=== PATIENT | male | born 1960 | race African-American/Black ===

== ENCOUNTER 2022-06-15 19:17 | Inpatient (IN) | payer MEDICAID, OTHER ==
[~2022-06-15] VITALS: Ht 182.9 cm; Wt 97.3 kg
[2022-06-15] MEDS ORDERED: SODIUM CHLORIDE 0.9% 500 ML IV ONE (20:30)
[2022-06-15] MEDS ORDERED: SODIUM CHLORIDE 0.9% 1,000 ML IV ONE (20:30)
[2022-06-15] MEDS ORDERED: ONDANSETRON HCL 4 MG/2 ML VIAL IV ONE (20:30)
[2022-06-15 21:12] LABS: Basophils # (auto) 0 10 ^3/uL (0-0.2); Basophils % (auto) 0.5 % (0.0-2.0); Eosinophils # (auto) 0 10 ^3/uL (0-0.8); Eosinophils % (auto) 0.4 % (0.0-7.0); Hematocrit 41.5 % (41.0-53.0); Hemoglobin 13.8 g/dL (13.5-17.5); Lymphocytes # (auto) 0.4 10 ^3/uL (0.4-5.4); Lymphocytes % (auto) 4.4 % (10.0-50.0); Mean Corpuscular Hemoglobin 30.2 pg (28.0-32.0); Mean Corpuscular Hgb Conc. 33.3 g/dL (32.0-36.0); Mean Corpuscular Volume 90.7 fL (80.0-100.0); Monocytes # (auto) 0.6 10 ^3/uL (0-1.3); Monocytes % (auto) 5.9 % (0.0-12.0); Neutrophils # (auto) 8.6 10 ^3/uL (1.6-8.6); Neutrophils % (auto) 88.8 % (37.0-80.0); Nucleated Red Blood Cells % 0.1 %; Red Blood Cells 4.58 10^6/uL (4.5-5.90); Red Cell Distribution Width 15.3 % (11.8-14.3); White Blood Cell 9.7 10^3/uL (4.4-10.8)
[2022-06-15 21:33] LABS: Albumin 3.8 g/dL (3.4-5.0); BUN/Creatinine Ratio 8.8; Calcium 8.5 mg/dL (8.5-10.1); Potassium 4.1 mmol/L (3.5-5.1)
[2022-06-15 21:36] LABS: Bilirubin, Total 1.3 mg/dL (0.2-1.0); Total Protein 7.2 g/dL (6.4-8.2)
[2022-06-15 22:33] LABS: INR 1.04 (0.9-1.15); Partial Thromboplastin Time 27.4 sec (24.6-33.4)
[2022-06-15] MEDS ORDERED: ENOXAPARIN SOD 80 MG/0.8ML SYRINGE SC ONE (23:00)
[2022-06-15] MEDS ORDERED: cefTRIAXone 1GM/50ML D5W 50 ML IV ONE (23:45)
[2022-06-15] MEDS ORDERED: ONDANSETRON HCL 4 MG/2 ML VIAL IV PRN (23:45)
[2022-06-15] MEDS ORDERED: DOCUSATE SOD 100 MG CAP PO PRN (23:45)
[2022-06-15] MEDS ORDERED: ACETAMINOPHEN 325 MG TAB PO PRN (23:45)
[2022-06-15] MEDS ORDERED: HYDROcodone-ACET 5/325MG TAB PO PRN (23:45)
[2022-06-16 00:30] VITALS: BP 103/66
[2022-06-16] MEDS ORDERED: NITROGLYCERIN 0.4 MG SL TAB SL PRN (01:30)
[2022-06-16] MEDS ORDERED: MORPHINE SULFATE INJ 2 MG/ml SYRG IV PRN (01:30)
[2022-06-16 02:14] LABS: Urine Bacteria MOD /hpf (None Seen); Urine Blood 2+ /uL (Negative); Urine Hyaline Cast MANY /lpf (0 - 2); Urine Mucus FEW (None Seen); Urine Specific Gravity 1.024 (1.001-1.035); Urine WBC 83 /hpf (0 - 3); Urine WBC Clumps PRESENT /hpf (None Seen)
[2022-06-16] MEDS: SODIUM CHLOR 0.9% PF (SALINE LOCK) 10ML VIAL/SYR IV SCH ×3 (05:56→23:20)
[2022-06-16 06:26] LABS: Basophils # (auto) 0 10 ^3/uL (0-0.2); Basophils % (auto) 0.2 % (0.0-2.0); Eosinophils # (auto) 0 10 ^3/uL (0-0.8); Eosinophils % (auto) 0.1 % (0.0-7.0); Hematocrit 38.9 % (41.0-53.0); Hemoglobin 12.7 g/dL (13.5-17.5); Lymphocytes # (auto) 1.3 10 ^3/uL (0.4-5.4); Mean Corpuscular Hemoglobin 30.2 pg (28.0-32.0); Mean Corpuscular Hgb Conc. 32.7 g/dL (32.0-36.0); Mean Corpuscular Volume 92.3 fL (80.0-100.0); Monocytes # (auto) 1.3 10 ^3/uL (0-1.3); Monocytes % (auto) 8.8 % (0.0-12.0); Neutrophils # (auto) 12.2 10 ^3/uL (1.6-8.6); Neutrophils % (auto) 81.9 % (37.0-80.0); Nucleated Red Blood Cells % 0.1 %; Red Blood Cells 4.22 10^6/uL (4.5-5.90); Red Cell Distribution Width 15.8 % (11.8-14.3); White Blood Cell 14.9 10^3/uL (4.4-10.8)
[2022-06-16 06:28] LABS: Potassium 4.1 mmol/L (3.5-5.1)
[2022-06-16 06:35] LABS: Albumin 3.2 g/dL (3.4-5.0); BUN/Creatinine Ratio 12.4; Bilirubin, Total 0.7 mg/dL (0.2-1.0); Calcium 8.1 mg/dL (8.5-10.1); Total Protein 6.3 g/dL (6.4-8.2)
[2022-06-16] MEDS: cefTRIAXone 1GM/50ML D5W 50 ML IV SCH (09:23)
[2022-06-16 09:47] VITALS: BP 119/56
[2022-06-16] MEDS: AZITHROMYCIN 500MG/ 250ML 250 ML IV SCH (10:29)
[2022-06-16] MEDS: FAMOTIDINE (10MG/ML) 2ML VL IV SCH ×2 (10:29→23:20)
[2022-06-16] MEDS: DexAMETHasone SOD PHOS 10MG/1ML VIAL INJ IV SCH (10:29)
[2022-06-16] MEDS: ZINC SULFATE 220mg CAP or TAB PO SCH (10:30)
[2022-06-16] MEDS: MULTIPLE VITAMIN TAB PO SCH (10:30)
[2022-06-16] MEDS: ASCORBIC ACID 500 MG TAB PO SCH ×2 (10:30→23:21)
[2022-06-16] MEDS: CHOLECALCIFEROL (VITD3) 2,000 UNIT CAP/TAB PO SCH (10:30)
[2022-06-16] MEDS: HEPARIN SODIUM (PORCINE) 5000 UNITS/ML 1ML VIAL SC SCH ×2 (10:50→23:21)
[2022-06-16 10:54] LABS: Cholesterol 105 mg/dL (< 200)
[2022-06-16 10:57] LABS: HDL Cholesterol 69 mg/dL (40-59); LDL Cholesterol 38 mg/dL (< 100); Triglycerides 58 mg/dL (< 150)
[2022-06-16] MEDS: ALBUTEROL SULF HFA 90MCG INH 200DOSE IN PRN ×2 (12:23→23:02)
[2022-06-16 17:00] VITALS: BP 112/61
[2022-06-16] MEDS: TAMSULOSIN HYDROCHLORIDE 0.4 MG CAP PO SCH (18:18)
[2022-06-16 22:54] VITALS: BP 129/86
[2022-06-16] MEDS: BUDESONIDE (INHALATION) 180 MCG IH IN SCH (23:02)
[2022-06-17] VITALS (7 sets, daily range): BP systolic 118–144; BP diastolic 56–84
[2022-06-17] MEDS: SODIUM CHLOR 0.9% PF (SALINE LOCK) 10ML VIAL/SYR IV SCH ×3 (05:28→22:34)
[2022-06-17 06:16] LABS: Basophils # (auto) 0 10 ^3/uL (0-0.2); Basophils % (auto) 0.1 % (0.0-2.0); Eosinophils # (auto) 0 10 ^3/uL (0-0.8); Eosinophils % (auto) 0.1 % (0.0-7.0); Hematocrit 38.6 % (41.0-53.0); Lymphocytes % (auto) 7.2 % (10.0-50.0); Mean Corpuscular Hemoglobin 30.4 pg (28.0-32.0); Mean Corpuscular Hgb Conc. 33.6 g/dL (32.0-36.0); Mean Corpuscular Volume 90.5 fL (80.0-100.0); Monocytes # (auto) 0.7 10 ^3/uL (0-1.3); Monocytes % (auto) 4.8 % (0.0-12.0); Neutrophils # (auto) 12.6 10 ^3/uL (1.6-8.6); Neutrophils % (auto) 87.8 % (37.0-80.0); Red Blood Cells 4.27 10^6/uL (4.5-5.90); Red Cell Distribution Width 15.8 % (11.8-14.3); White Blood Cell 14.4 10^3/uL (4.4-10.8)
[2022-06-17 06:30] LABS: Calcium 8.5 mg/dL (8.5-10.1); Potassium 4.3 mmol/L (3.5-5.1)
[2022-06-17 06:35] LABS: BUN/Creatinine Ratio 11.9
[2022-06-17] MEDS: cefTRIAXone 1GM/50ML D5W 50 ML IV SCH (09:51)
[2022-06-17] MEDS: FAMOTIDINE (10MG/ML) 2ML VL IV SCH ×2 (09:52→22:33)
[2022-06-17] MEDS: ZINC SULFATE 220mg CAP or TAB PO SCH (09:52)
[2022-06-17] MEDS: DexAMETHasone SOD PHOS 10MG/1ML VIAL INJ IV SCH (09:52)
[2022-06-17] MEDS: CHOLECALCIFEROL (VITD3) 2,000 UNIT CAP/TAB PO SCH (09:52)
[2022-06-17] MEDS: MULTIPLE VITAMIN TAB PO SCH (09:52)
[2022-06-17] MEDS: ASCORBIC ACID 500 MG TAB PO SCH ×2 (09:52→22:34)
[2022-06-17] MEDS: BUDESONIDE (INHALATION) 180 MCG IH IN SCH ×2 (09:57→22:38)
[2022-06-17] MEDS: ALBUTEROL SULF HFA 90MCG INH 200DOSE IN PRN ×2 (09:57→22:38)
[2022-06-17] MEDS: HEPARIN SODIUM (PORCINE) 5000 UNITS/ML 1ML VIAL SC SCH ×2 (10:02→22:35)
[2022-06-17] MEDS: AZITHROMYCIN 500MG/ 250ML 250 ML IV SCH (10:41)
[2022-06-17] MEDS: TAMSULOSIN HYDROCHLORIDE 0.4 MG CAP PO SCH (18:04)
[2022-06-18] VITALS (8 sets, daily range): BP systolic 116–140; BP diastolic 55–72
[2022-06-18] MEDS: SODIUM CHLOR 0.9% PF (SALINE LOCK) 10ML VIAL/SYR IV SCH ×3 (06:17→21:22)
[2022-06-18 07:01] LABS: Basophils # (auto) 0 10 ^3/uL (0-0.2); Basophils % (auto) 0.3 % (0.0-2.0); Eosinophils # (auto) 0 10 ^3/uL (0-0.8); Hematocrit 39.4 % (41.0-53.0); Lymphocytes # (auto) 1.4 10 ^3/uL (0.4-5.4); Lymphocytes % (auto) 9.8 % (10.0-50.0); Mean Corpuscular Hemoglobin 30.1 pg (28.0-32.0); Mean Corpuscular Hgb Conc. 33.1 g/dL (32.0-36.0); Mean Corpuscular Volume 90.8 fL (80.0-100.0); Monocytes # (auto) 0.9 10 ^3/uL (0-1.3); Monocytes % (auto) 6.6 % (0.0-12.0); Neutrophils # (auto) 11.8 10 ^3/uL (1.6-8.6); Neutrophils % (auto) 83.3 % (37.0-80.0); Red Blood Cells 4.33 10^6/uL (4.5-5.90); Red Cell Distribution Width 15.5 % (11.8-14.3); White Blood Cell 14.1 10^3/uL (4.4-10.8)
[2022-06-18 07:18] LABS: BUN/Creatinine Ratio 23.1; Calcium 8.3 mg/dL (8.5-10.1)
[2022-06-18] MEDS: DexAMETHasone SOD PHOS 10MG/1ML VIAL INJ IV SCH (09:24)
[2022-06-18] MEDS: cefTRIAXone 1GM/50ML D5W 50 ML IV SCH (09:24)
[2022-06-18] MEDS: MULTIPLE VITAMIN TAB PO SCH (09:25)
[2022-06-18] MEDS: AZITHROMYCIN 500MG/ 250ML 250 ML IV SCH (09:25)
[2022-06-18] MEDS: ASCORBIC ACID 500 MG TAB PO SCH ×2 (09:25→21:24)
[2022-06-18] MEDS: ZINC SULFATE 220mg CAP or TAB PO SCH (09:25)
[2022-06-18] MEDS: FAMOTIDINE (10MG/ML) 2ML VL IV SCH ×2 (09:25→21:22)
[2022-06-18] MEDS: CHOLECALCIFEROL (VITD3) 2,000 UNIT CAP/TAB PO SCH (09:26)
[2022-06-18] MEDS: HEPARIN SODIUM (PORCINE) 5000 UNITS/ML 1ML VIAL SC SCH ×2 (09:27→21:24)
[2022-06-18] MEDS: BUDESONIDE (INHALATION) 180 MCG IH IN SCH ×2 (09:51→22:28)
[2022-06-18] MEDS: ALBUTEROL SULF HFA 90MCG INH 200DOSE IN PRN ×2 (09:51→22:28)
[2022-06-18] MEDS: TAMSULOSIN HYDROCHLORIDE 0.4 MG CAP PO SCH (17:34)
[2022-06-19 05:00] VITALS: BP 136/75
[2022-06-19] MEDS: SODIUM CHLOR 0.9% PF (SALINE LOCK) 10ML VIAL/SYR IV SCH (05:40)
[2022-06-19 06:01] LABS: Basophils # (auto) 0.1 10 ^3/uL (0-0.2); Basophils % (auto) 0.5 % (0.0-2.0); Eosinophils # (auto) 0 10 ^3/uL (0-0.8); Hematocrit 40.5 % (41.0-53.0); Hemoglobin 13.4 g/dL (13.5-17.5); Lymphocytes # (auto) 2.5 10 ^3/uL (0.4-5.4); Lymphocytes % (auto) 17.4 % (10.0-50.0); Mean Corpuscular Hemoglobin 29.9 pg (28.0-32.0); Mean Corpuscular Hgb Conc. 33.2 g/dL (32.0-36.0); Mean Corpuscular Volume 89.9 fL (80.0-100.0); Monocytes # (auto) 1.1 10 ^3/uL (0-1.3); Monocytes % (auto) 7.9 % (0.0-12.0); Neutrophils # (auto) 10.8 10 ^3/uL (1.6-8.6); Neutrophils % (auto) 74.2 % (37.0-80.0); Nucleated Red Blood Cells % 0.1 %; Red Cell Distribution Width 15.3 % (11.8-14.3); White Blood Cell 14.5 10^3/uL (4.4-10.8)
[2022-06-19 06:03] LABS: Albumin 3.2 g/dL (3.4-5.0); Calcium 8.7 mg/dL (8.5-10.1); Potassium 3.6 mmol/L (3.5-5.1)
[2022-06-19 06:05] LABS: BUN/Creatinine Ratio 23.8
[2022-06-19 06:08] LABS: Bilirubin, Total 0.3 mg/dL (0.2-1.0); Total Protein 6.8 g/dL (6.4-8.2)
[2022-06-19] MEDS: BUDESONIDE (INHALATION) 180 MCG IH IN SCH (06:18)
[2022-06-19] MEDS: ALBUTEROL SULF HFA 90MCG INH 200DOSE IN PRN (07:04)
[2022-06-19 08:00] VITALS: BP 134/71
[2022-06-19 08:56] VITALS: BP 134/71
[2022-06-19] MEDS ORDERED: AZITHROMYCIN 250 MG TAB PO SCH (10:00)
[2022-06-19] MEDS: cefTRIAXone 1GM/50ML D5W 50 ML IV SCH (10:15)
[2022-06-19] MEDS: FAMOTIDINE (10MG/ML) 2ML VL IV SCH (10:16)
[2022-06-19] MEDS: DexAMETHasone SOD PHOS 10MG/1ML VIAL INJ IV SCH (10:16)
[2022-06-19] MEDS: ASCORBIC ACID 500 MG TAB PO SCH (10:16)
[2022-06-19] MEDS: ZINC SULFATE 220mg CAP or TAB PO SCH (10:16)
[2022-06-19] MEDS: MULTIPLE VITAMIN TAB PO SCH (10:16)
[2022-06-19] MEDS: CHOLECALCIFEROL (VITD3) 2,000 UNIT CAP/TAB PO SCH (10:16)
[2022-06-19] MEDS: HEPARIN SODIUM (PORCINE) 5000 UNITS/ML 1ML VIAL SC SCH (10:17)
[2022-06-19] MEDS ORDERED: TAM04C PO (11:34)
[2022-06-19] MEDS ORDERED: LEVO750T8 PO (11:34)
[2022-06-19] MEDS ORDERED: AZIT500T66 PO (11:34)
[2022-06-19 12:34] VITALS: BP 118/55
== END 2022-06-19 13:18 | disposition home or self-care (01) | DRG 720 ==
LOC: ER 19:17 → TELE 06-16 01:16 → TELE-WESTW 06-16 09:16
PROVIDERS: ADMIT Nurse Practitioner Family; ATTEND Family Medicine
DX: A41.51 Sepsis due to Escherichia coli [E. coli] (principal); I21.4 Non-ST elevation (NSTEMI) myocardial infarction; U07.1 COVID-19; E44.0 Moderate protein-calorie malnutrition; N18.31 Chronic kidney disease, stage 3a; R65.20 Severe sepsis without septic shock; N39.0 Urinary tract infection, site not specified; N40.0 Benign prostatic hyperplasia without lower urinary tract symptoms; Z87.01 Personal history of pneumonia (recurrent); Z86.16 Personal history of COVID-19; R74.01 Elevation of levels of liver transaminase levels; R79.89 Other specified abnormal findings of blood chemistry; Z88.0 Allergy status to penicillin; Z68.29 Body mass index [BMI] 29.0-29.9, adult
CPT/HCPCS: 36415; 71045; 71046; 74176; 80048; 80053; 80061; 81001; 82728; 83036; 83605; 83615; 83735; 83880; 84484; 85025; 85379; 85610; 85730; 86141; 87040; 87077; 87086; 87186; 93306; 93970; 94640; 96361; 96365; 96372; 96375; G0378; J0696; J1100; J2405; J3490